=== PATIENT | female | born 1975 | race Caucasian/White ===

== ENCOUNTER 2020-10-06 14:56 | Observation (INO) | payer OTHER ==
[~2020-10-06] VITALS: Ht 167.6 cm; Wt 144.2 kg
[~2020-10-06 14:56] MED LIST: ADMELOG SO100 UNIT/1 SC; ADMELOG100 UNIT/1 SC; ALBUTEROL INHALER INH; AMITRIPTYLINE H50 MG PO; ASPIRIN CHEWABL81 MG PO; AUGMENTIN 875-1 EACH PO; BASAGLAR INSULIN SC; BASAGLAR K100 UNIT/1 SQ; BYDUREON P2 MG/0.65 SQ; CIPRO500 MG PO; CYMBALTA60 MG PO; DOXYCYCLINE HY100 MG PO; DULERA 200 MCG8.8 GM INH; ELIQUIS5 M1 PO; FLUCONAZOLE150 MG PO; GABAPENTIN300 MG PO; GLUCOPHAGE1000 MG PO; IPRAT-ALBUT 0.5-3 ML INH; LIORESAL TAB 1010 MG PO; LIPITOR40 MG PO; LOPRESSOR100 MG PO; LOSARTAN POTASS50 MG PO; MEDROL TAB 4 MG4 MG PO; METOPROLOL TART50 MG PO; NAPROSYN500 MG PO; NEURONTIN 300300 MG PO; NEXIUM40 MG PO; NORCO 5-325 TA1 EACH PO; NORVASC5 MG PO; NYSTATIN100000 UNI PO; OXYCODONE HCL5 MG PO; PROAIR HFA8.5 GM INH; PROTONIX40 MG PO; PYRIDIUM100 MG PO; SINGULAIR10 MG PO; SPIRIVA RESPIMAT4 GM INH; VENTOLIN HFA 66.7 GM INH; VITAMIN D PO; VITAMIN D250000 UNIT PO; XYZAL5 MG PO; ZOFRAN 4 MG TAB4 MG PO
[2020-10-06 16:22] LABS: HEMOGLOBIN 13.4 gm/dl (12.3-15.3); RED BLOOD COUNT 4.24 M/UL (4.00-5.10); WHITE BLOOD COUNT 7.3 K/UL (4.5-11.0)
[2020-10-06 16:50] LABS: BUN/CREATININE RATIO 11 (0-10)
[2020-10-06] MEDS ORDERED: BACLOFEN20 MG PO (23:12)
[2020-10-07 04:36] LABS: HEMOGLOBIN 12.9 gm/dl (12.3-15.3); RED BLOOD COUNT 4.12 M/UL (4.00-5.10); WHITE BLOOD COUNT 6.8 K/UL (4.5-11.0)
[2020-10-07 05:03] LABS: BUN/CREATININE RATIO 14 (0-10)
== END 2020-10-07 19:54 | disposition home or self-care (01) ==
LOC: ER1 14:56 → CDU 18:11 → M/S 22:10
PROVIDERS: Nurse Practitioner; ADMIT Internal Medicine
DX: I25.10 Atherosclerotic heart disease of native coronary artery without angina pectoris (principal); I10 Essential (primary) hypertension; E11.9 Type 2 diabetes mellitus without complications; E78.5 Hyperlipidemia, unspecified; E66.9 Obesity, unspecified; M79.7 Fibromyalgia; N39.0 Urinary tract infection, site not specified; K21.9 Gastro-esophageal reflux disease without esophagitis; K76.0 Fatty (change of) liver, not elsewhere classified; Z90.49 Acquired absence of other specified parts of digestive tract; Z91.040 Latex allergy status; Z20.822 Contact with and (suspected) exposure to COVID-19
CPT/HCPCS: 0240U; 36415; 71045; 80048; 80053; 82550; 82553; 82962; 83874; 84484; 85025; 93005; 96365; 96374; 99285; G0378